=== PATIENT | male | born 1970 | race Caucasian/White ===

== ENCOUNTER 2021-10-08 09:19 | Outpatient (CLI) | payer OTHER | END 2021-10-08 09:23 | disposition home or self-care (01) | LOC: NUCLEAR 09:19 | PROVIDERS: ATTEND Internal Medicine | DX: I10 Essential (primary) hypertension (principal) ==

== ENCOUNTER 2023-12-24 09:37 | Outpatient (CLI) | payer OTHER | END 2023-12-24 09:44 | disposition home or self-care (01) | LOC: RAD 09:37 | PROVIDERS: ATTEND Physical Medicine & Rehabilitation | DX: S60.221A Contusion of right hand, initial encounter (principal) ==

== ENCOUNTER 2024-08-10 09:31 | Outpatient (CLI) | payer OTHER | END 2024-08-10 09:32 | disposition home or self-care (01) | LOC: RAD 09:31 | PROVIDERS: ATTEND Physical Medicine & Rehabilitation | DX: S90.31XA Contusion of right foot, initial encounter (principal); S92.001A Unspecified fracture of right calcaneus, initial encounter for closed fracture; X58.XXXA Exposure to other specified factors, initial encounter; Y93.9 Activity, unspecified; Y92.9 Unspecified place or not applicable; Y99.9 Unspecified external cause status ==